=== PATIENT | female | born 2000 | race Caucasian/White ===

== ENCOUNTER 2024-11-09 00:52 | Emergency (ER) | payer OTHER, BC ==
[~2024-11-09] VITALS: Ht 160 cm; Wt 114.3 kg
[2024-11-09] MEDS: ONDANSETRON HCL INJ 2MG/ML 2ML 2 MG/ML VIAL IV STA (02:09)
[2024-11-09] MEDS: Morphine 4mg INJECTION 4 MG/ML INJ IV ONE (02:10)
[2024-11-09 04:32] VITALS: PULSE 96; RESP 18; TEMP 98.2
[2024-11-09] MEDS: KETOROLAC TROMETHAMINE 30 MG/ML VIAL IV STA (04:32)
[2024-11-09 04:37] VITALS: BP 139/93; PULSE 96; RESP 18; TEMP 98.2; O2SAT 98
== END 2024-11-09 04:37 | disposition home or self-care (01) ==
LOC: FSED 01:20
DX: R10.32 Left lower quadrant pain (principal); N83.202 Unspecified ovarian cyst, left side
CPT/HCPCS: 76856; 80048; 81003; 81025; 85025; 96374; 96375; 99283; J2270; J2405; J1885